=== PATIENT | male | born 1980 | race Caucasian/White ===

== ENCOUNTER 2021-10-24 16:28 | Emergency (ER) | payer SELFPAY ==
[~2021-10-24] VITALS: Ht 180.3 cm; Wt 80.3 kg
[2021-10-24] MEDS ORDERED: CEPH-509 PO (18:40)
[2021-10-24] MEDS ORDERED: TETANUS-DIPTH-ACEL PERTUSSIS 0.5ML SYR Tdap IM ONE (18:45)
[2021-10-24 19:35] VITALS: BP 115/73
== END 2021-10-24 19:46 | disposition home or self-care (01) ==
LOC: ER 16:28
DX: S61.221A Laceration with foreign body of left index finger without damage to nail, initial encounter (principal); W26.0XXA Contact with knife, initial encounter; Y93.89 Activity, other specified; Y92.89 Other specified places as the place of occurrence of the external cause; Y99.8 Other external cause status
CPT/HCPCS: 12001; 90471; 90715